=== PATIENT | female | born 1980 | race Caucasian/White ===

== ENCOUNTER 2017-09-13 12:36 | Emergency (ER) | payer BC, SELFPAY ==
[2017-09-13 12:37] VITALS: BP 125/78; PULSE 78; RESP 16; TEMP 37.4; O2SAT 98; BMI 32.4
[2017-09-13] MEDS: 0.9% Normal Saline 1,000 ML 1000 ML IV (13:00)
[2017-09-13] MEDS: Ketorolac 30 MG/ML Syringe IV (13:01)
[2017-09-13] MEDS: Metoclopramide 10 MG/2 ML Vial IV (13:02)
[2017-09-13] MEDS: DiphenhydrAMINE 50 MG/ML Syringe 25 MG IV (13:06)
--- NOTE | 2017-09-13 14:16 | ED.VISSUMM ---
- ER Visit Summary Date of Service: 09/13/17 Chief Complaint: [Headache] History of Present Illness: The patient is a 37 F [presents to the emergency department with a headache that started yesterday. Patient rates her headache as an 8 out of 10. Patient describes her headache as diffuse behind her eyes. Patient states typical of her migraines. Patient describes nausea and vomiting. Patient has had photophobia. Patient states that she normally gets a migraine like this about once every 1-2 months. Patient's last menstrual period was 2 weeks ago. Patient denies any head injury. Patient states that she has been sick with a sore throat yesterday was seen at urgent care and diagnosed with strep pharyngitis and started on amoxicillin. Patient denies any neck pain.] Physical Examination: [HEENT-PERRLA, EOMI. Cranial nerves II through XII grossly intact. TMs clear. Mucous membranes moist. No adenopathy. Patient has diffuse pharyngeal erythema as well as tonsillar exudates bilaterally. No trismus on exam. Patient does have anterior cervical lymphadenopathy. No nuchal rigidity Cardiovascular-regular rate and rhythm without murmur or ectopy Lungs-clear to auscultation, chest wall stable without crepitus or subcu emphysema Abdomen-normoactive bowel sounds, soft, nontender, no rebound or rigidity, no peritoneal signs. Neuro yesv-uedjei-tynh and heel to kaur testing within normal limits, negative Romberg, negative pronator drift, fundi benign Extremities-intact ?4, normal range of motion, normal pulses, atraumatic] Test Results: None indicated] Emergency Department Course and Treatment: [Patient was given a liter normal same fluid bolus as well as Reglan, Benadryl, Toradol, and Decadron Treatment Plan: [Use ibuprofen or Tylenol for worsening] headache. Patient continue with antibiotics. Disposition: [Discharged home in stable condition] Impression: [Migrainous cephalgia Strep pharyngitis] This note was generated with [employer] dictation software. It may contain incorrect words, spelling, and punctuation that were not noted in review of the chart prior to signing ED Disposition - Plan for ED Patient: Chief Complaint: Headache Referrals: Fortino Lerner MD [Primary Care Provider] -
--- NOTE | 2017-09-13 14:19 | ED.DCSUM_ITS ---
- ER Visit Summary Date of Service: 09/13/17 Chief Complaint: [Headache] History of Present Illness: The patient is a 37 F [presents to the emergency department with a headache that started yesterday. Patient rates her headache as an 8 out of 10. Patient describes her headache as diffuse behind her eyes. Patient states typical of her migraines. Patient describes nausea and vomiting. Patient has had photophobia. Patient states that she normally gets a migraine like this about once every 1-2 months. Patient's last menstrual period was 2 weeks ago. Patient denies any head injury. Patient states that she has been sick with a sore throat yesterday was seen at urgent care and diagnosed with strep pharyngitis and started on amoxicillin. Patient denies any neck pain.] Physical Examination: [HEENT-PERRLA, EOMI. Cranial nerves II through XII grossly intact. TMs clear. Mucous membranes moist. No adenopathy. Patient has diffuse pharyngeal erythema as well as tonsillar exudates bilaterally. No trismus on exam. Patient does have anterior cervical lymphadenopathy. No nuchal rigidity Cardiovascular-regular rate and rhythm without murmur or ectopy Lungs-clear to auscultation, chest wall stable without crepitus or subcu emphysema Abdomen-normoactive bowel sounds, soft, nontender, no rebound or rigidity, no peritoneal signs. Neuro drfn-cmlfcw-lvem and heel to kaur testing within normal limits, negative Romberg, negative pronator drift, fundi benign Extremities-intact ?4, normal range of motion, normal pulses, atraumatic] Test Results: None indicated] Emergency Department Course and Treatment: [Patient was given a liter normal same fluid bolus as well as Reglan, Benadryl, Toradol, and Decadron Treatment Plan: [Use ibuprofen or Tylenol for worsening] headache. Patient continue with antibiotics. Disposition: [Discharged home in stable condition] Impression: [Migrainous cephalgia Strep pharyngitis] This note was generated with [employer] dictation software. It may contain incorrect words, spelling, and punctuation that were not noted in review of the chart prior to signing ED Disposition - Plan for ED Patient: Chief Complaint: Headache Referrals: Fortino Lerner MD [Primary Care Provider] -
--- NOTE | 2017-09-13 14:19 | ED.DEP ---
ED Disposition - Plan for ED Patient: Chief Complaint: Headache Instructions: ED Headache Migraine, ED Strep Pharyngitis Conf Referrals: Fortino Lerner MD [Primary Care Provider] - 3-5 Days
[2017-09-13 14:36] VITALS: BP 114/57; PULSE 81; RESP 16; O2SAT 100
--- NOTE | 2017-09-13 14:37 | ED.RN ---
THIS NURSE REVIEWED D/C INSTRUCTIONS WITH PT. PT VERBALIZED UNDERSTANDING OF INSTRUCTIONS. IV D/C. IV CATHETER INTACT. PT TOLERATED WELL. PT DENIES FURTHER NEEDS OR QUESTIONS AT THIS TIME. PT AMBULATES FROM ROOM ON OWN WITHOUT ASSISTANCE FROM STAFF
== END 2017-09-13 14:38 | disposition home or self-care (01) ==
PROVIDERS: Emergency Provider Emergency Medicine; Family Provider Internal Medicine; PCP Internal Medicine
DX: G43.909 Migraine, unspecified, not intractable, without status migrainosus (principal); J02.0 Streptococcal pharyngitis; Z79.2 Long term (current) use of antibiotics
CPT/HCPCS: 96361; 96374; 96375; 99283; J7030; A4216

== ENCOUNTER 2021-01-16 11:53 | Outpatient (RCR) | payer BC, SELFPAY | END 2021-02-12 23:59 | LOC: LABSPEC 11:53 | PROVIDERS: PCP Internal Medicine; Referring Provider Family Medicine; Visit Provider Family Medicine | DX: U07.1 COVID-19 (principal) | CPT/HCPCS: 87635; U0005; U0003 ==

== ENCOUNTER → 2021-02-28 15:51 | Outpatient (CLI) | payer BC, SELFPAY | LOC: LAB 16:04 | PROVIDERS: PCP Internal Medicine; Referring Provider Nurse Practitioner Adult Health; Visit Provider Nurse Practitioner Adult Health | DX: J02.9 Acute pharyngitis, unspecified (principal) | CPT/HCPCS: 87070; 87077 ==

== ENCOUNTER 2022-03-13 08:34 | Emergency (ER) | payer BC, SELFPAY ==
[2022-03-13 08:35] VITALS: BP 178/118; PULSE 85; RESP 18; TEMP 36.6; O2SAT 100; BMI 28.3
--- NOTE | 2022-03-13 09:39 | RAD_ITS ---
STUDY: X-RAY CHEST REASON FOR EXAM: Female, 41 years old. SOB TECHNIQUE: Single AP portable view of the chest. COMPARISON: None. FINDINGS: EKG electrodes are seen. The lungs are clear and expanded. There is no demonstrated pleural abnormality. Normal size heart. Normal mediastinum and graeme. Normal visualized pulmonary arteries. Normal visualized aortic arch and descending thoracic aorta. Normal visualized thoracic spine. Normal visualized ribs, clavicles, and shoulders. There is no demonstrated abnormality of the visualized soft tissue structures of the upper abdomen. RAD/Chest 1 View (Portable) IMPRESSION: Normal x-ray examination of the chest. Electronically Signed: Jose Suero MD at 10:26 EST ,
--- NOTE | 2022-03-13 09:48 | ED.VIS.CHEST ---
HPI History of Present Illness Chief Complaint: Palpitations Informant: patient and parent Narrative Narrative: Patient states that for couple days she has been having a sensation of her heart missing beats. She states it feels like her heart just pauses and falls. When this happens she feels just momentary shortness of breath but it only last for the time of that 1 beat. Yesterday she did have some soreness in her left upper chest. It lasted continually for about 7 or 8 hours. But she has no pain now. She has never had pain with breathing. She is not short of breath except when she gets these intermittent pauses in her heartbeat. She also states that her blood pressure has been going up recently. It used to run 140s over 90s. Her doctor was talking about starting therapy but they were holding off pending some rechecks. She actually has an appointment with her physician later today. Patient has no personal or family history of DVT or PE. She has never been a smoker. No family history of heart disease. No diabetes cholesterol or documented high blood pressure. In between these episodes she feels perfectly normal and she feels normal at this time. She cannot think of anything that makes the symptoms better or worse. She states that currently she is on no medications. Patient does have an added history that she thinks she might have a slight UTI with some frequency and very slight dysuria. She has had these before. [facility] Medical History Anxiety and depression Blood transfusion complicating Hives Hypercholesteremia Hypertension Hypertriglyceridemia Migraine Obesity (BMI 30.0-34.9) Vitamin D deficiency Home Medications bupropion HCl 150 mg 24 hr tablet, extended release (Wellbutrin XL) 150 mg PO QAM #30 tabs 06/08/21 [Rx Last Taken Unknown] bupropion HCl 300 mg 24 hr tablet, extended release 300 mg PO QAM #30 tabs 06/08/21 [Rx Last Taken Unknown] atogepant 60 mg tablet (Qulipta) 60 mg PO DAILY 01/16/22 [History Last Taken Unknown] atogepant 60 mg tablet (Qulipta) 60 mg PO DAILY #1 TAB 01/16/22 [Rx Last Taken Unknown] fluconazole 150 mg tablet (Diflucan) 150 mg PO DAILY #2 tabs 01/16/22 [Rx Last Taken Unknown] phentermine 7.5 mg-topiramate ER 46 mg capsule,ext.release 24hr mphase (Qsymia) 1 cap PO DAILY 01/16/22 [History Last Taken Unknown] ciprofloxacin HCl 250 mg tablet 250 mg PO Q12H #10 tabs 01/17/22 [Rx Last Taken Unknown] Allergy/AdvReac Type Severity Reaction Status Date / Time sulfamethoxazole Allergy Rash Verified 03/13/22 08:37 [From Bactrim] trimethoprim [From Bactrim] Allergy Rash Verified 03/13/22 08:37 venlafaxine HCl Allergy Other Verified 03/13/22 08:37 [From Effexor] Family History Father , age 73 possible aortic aneurism Hypertension Aunt Breast cancer Grandmother CVA (cerebral vascular accident) Surgical History deliv NOS-unsp History of cholecystectomy History of repair of congenital cleft palate Social History current occupational status: employed 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 ; Denies cough Gastrointestinal Gastrointestinal: Denies abdominal pain, nausea or vomiting Genitourinary Genitourinary ED: Reports dysuria and urinary frequency Musculoskeletal Musculoskeletal: Denies arthralgias, back pain, myalgias or neck pain Integumentary Denies rash Neurologic Neurologic: Denies headache(s), paresthesias or weakness Endocrine Endocrinology: Denies polydipsia or polyuria Hematologic/Lymphatic Hematologic/Lymphatic: Denies easy bleeding or easy bruising Allergic/Immunologic Allergic/Immunologic ED: Denies urticaria EXAM Physical Exam Const Vital Signs: 03/13/22 08:35 03/13/22 09:58 Temperature 97.9 F Temperature Source Temporal Pulse Rate 85 70 Respiratory Rate 18 Blood Pressure 178/118 H 154/108 H Blood Pressure Mean 138 123 Pulse Ox 100 Oxygen Delivery Method Room Air Positive well nourished and well developed General Appearance ED: well developed and NAD HEENT Reports moist mucous membranes atraumatic Eyes General Eye ED: Negative for pale conjunctiva or scleral icterus Neck no lymphadenopathy, supple and no JVD Chest Wall inspection of chest normal and palpation of chest normal Resp normal respiratory effort and clear to auscultation bilaterally Resp Narrative: No pain with a deep breath. Auscultation: Negative for rales, rhonchi or wheezes Cardio regular rate and regular rhythm Rate: other Other Details: She is in a normal sinus rhythm at about 75 on the monitor. However, she has not infrequent PVCs. When she has a PVC she reports feeling the same feelings that brought her in. They do correlate with the presence of PVCs. On the monitor these all look to be unifocal. I have not seen no couplets. They are all singles. GI normal to inspection, nondistended, normoactive bowel sounds Back/Spine no CVA tenderness Extremity normal to inspection Extremity Narrative: No cord edema or asymmetry. No tenderness. General Extremety ED: Negative for edema, pulses abnormal or tenderness General Extremity: Negative for edema or pulses abnormal Neuro oriented x3 Psych mental status grossly normal Skin no rashes or lesions noted MDM MDM MDM Narrative Medical decision making narrative: Patient CBC, electrolytes are normal. Urine is also normal. Troponin was negative at only 4. She is having occasional PVCs still. I think this is the cause of her symptoms. I do not think this requires acute treatment. We did verify that the only med she is currently on is Wellbutrin. But she has been on this a long time without problems. We discussed getting better sleep, stress management, avoiding dkjl-lew-qvppoba decongestions antihistamine stimulants coffee tea etc. She is PERC negative. Lab Data Attestation: I reviewed the patient's lab results. Labs: Laboratory Results - last 24 hr 03/13/22 03/13/22 03/13/22 09:55 10:07 10:07 WBC 8.4 RBC 4.30 Hgb 13.0 Hct 39.1 MCV 90.9 MCH 30.2 MCHC 33.2 RDW Std Deviation 41.9 RDW Coeff of Reynaldo 12.7 Plt Count 323 MPV 9.0 Immature Gran % (Auto) 0.400 Neut % (Auto) 58.9 Lymph % (Auto) 32.8 [place] % (Auto) 5.5 Eos % (Auto) 1.6 Baso % (Auto) 0.8 Absolute Neuts (auto) 4.9 Absolute Lymphs (auto) 2.74 Nucleated RBC % 0 Sodium 141 Potassium 3.8 Chloride 109 H Carbon Dioxide 30.0 Anion Gap 2 L BUN 6 L Creatinine 0.62 Estim Creat Clear Calc 105.20 Est GFR (MDRD) Af Amer 138 Est GFR (MDRD) Non-Af 114 BUN/Creatinine Ratio 9.7 L Glucose 87 Calcium 8.5 Troponin I High Sens 4 Urine Color Yellow Urine Clarity Sl. Cloudy Urine pH 6.5 Ur Specific [place] 1.015 Urine Protein Negative Urine Glucose (UA) Normal Urine Ketones Negative Urine Occult Blood Negative Urine Nitrite Negative Urine Bilirubin Negative Urine Urobilinogen Normal Ur Leukocyte Esterase Negative Urine RBC 0 SEEN Urine WBC 0 SEEN Ur Squamous Epith Cells 0-5 SEEN Urine Bacteria 0 SEEN Urine Mucus 0 SEEN Radiography Diagnostic Testing: Clinical Impression(s) from Imaging Studies Chest X-Ray 03/13/22 09:39 IMPRESSION: Normal x-ray examination of the chest. Electronically Signed: Jose Suero MD at 10:26 EST Reading Location ID and State: [address] [place] [address] , Service support , Single view chest x-ray looked at by me and read by radiology shows no acute process EKG Initial EKG: Comments: EKG done for palpitations and history of prior chest pain read by me shows a normal sinus rhythm with occasional PVCs. Overall rate of 76. No other ectopy. No acute ST elevation or depression. IL interval, QRS duration and QTc are normal. Discharge Plan Triage Chief Complaint: Palpitations ED Provider: Terence Bunch Dx/Rx/DC Orders Clinical Impression: Frequent unifocal PVCs Instructions: ED Palpitations Prescriptions: No Action bupropion HCl 300 mg tablet extended release 24 hr 300 mg PO QAM Qty: 30 3RF bupropion HCl [Wellbutrin XL] 150 mg tablet extended release 24 hr 150 mg PO QAM Qty: 30 3RF Qulipta 60 mg tablet 60 mg PO DAILY Qty: 1 0RF fluconazole [Diflucan] 150 mg tablet 150 mg PO DAILY Qty: 2 0RF Qsymia 7.5-46 mg capsule, ER multiphase 24 hr 1 cap PO DAILY Qulipta 60 mg tablet 60 mg PO DAILY ciprofloxacin HCl 250 mg tablet 250 mg PO Q12H Qty: 10 0RF Primary Care Provider: Fortino Lerner Referrals: Fortino Lerner MD [Primary Care Provider] - 3-5 Days if not improving Disposition Disposition: Home, Self Care
[2022-03-13] MEDS: 0.9% Normal Saline 1,000 ML 999 ML IV (09:54)
[2022-03-13 09:58] VITALS: BP 154/108; PULSE 70
[2022-03-13 10:01] LABS: Bacteria 0 SEEN /hpf (None Seen); Mucous, Urine 0 SEEN /hpf (<or=2+); Red Blood Cells-Urine 0 SEEN /hpf (0-5); White Blood Cells 0 SEEN /hpf (0-5)
[2022-03-13 10:12] LABS: Color, Urine Yellow (Yellow); Glucose, Dipstick Normal (Normal); Ketone-Dipstick Negative (Negative); Leukocyte Esterase-Dipstick Negative /ul (Negative); Nitrite-Dipstick Negative (Negative); Occult Blood-Urine Negative /ul (Negative); Protein-Dipstick Negative (Negative); Specific Gravity, Urine 1.015 (1.002-1.030); Urine Bilirubin Dipstick Negative (Negative); Urine Clarity Sl. Cloudy (Clear); Urine Urobilinogen Normal (Normal); Urine pH 6.5 (5.0 - 8.0)
[2022-03-13 10:13] LABS: Absolute Lymphocyte Count 2.74 X10^3/uL (0.83-4.51); Absolute Neutrophil Count 4.9 X10^3/uL (2.0-7.7); Basophil# 0.07 X10^3/uL; Basophil% 0.8 % (0-1); Eosinophil# 0.13 X10^3/uL; Eosinophils% 1.6 % (0-5); Hematocrit 39.1 % (37-47); Lymphocyte # 2.74 X10^3/ul (0.83-4.51); Lymphocyte % 32.8 % (19-41); Mean Corp Hgb Conc 33.2 g/dL (32-36); Mean Corpuscular Hgb 30.2 pg (27.0-32.0); Mean Corpuscular Volume 90.9 fL (81-99); Monocyte# 0.46 X10^3/uL; Monocyte% 5.5 % (0-10); NRBC Flagged by Analyzer 0 % (0-5); Neutrophil # 4.92 X10^3/uL (2.7-7.7); Neutrophil % 58.9 % (47-70); Platelet Count 323 K/mm3 (150-450); RBC Distribution Width CV 12.7 % (11.6-14.6); RBC Distribution Width SD 41.9 fl (35.1-43.9); White Blood Count 8.4 K/mm3 (4.4-11.0)
[2022-03-13 10:17] LABS: Squamous Epithelial Cells - UA 0-5 SEEN /hpf (5-10)
[2022-03-13 10:28] LABS: Anion Gap 2 (5-15); BUN 6 mg/dL (7-18); BUN/Creat Ratio 9.7 RATIO (10-20); Calcium,Total 8.5 mg/dL (8.5-10.1); Chloride 109 mmol/L (98-107); Creatinine, Serum 0.62 mg/dL (0.55-1.02); EST Glomerular Filtration Rate 114 mL/min (>60); Est Glom Filt Rate - Afr Amer 138 mL/min (>60); Glucose 87 mg/dL (74-106); Potassium 3.8 mmol/L (3.5-5.1); Sodium Level 141 mmol/L (136-145); Troponin-I HS 4 pg/mL (3.0-54.0)
[2022-03-13 11:12] VITALS: BP 144/110; PULSE 72
== END 2022-03-13 11:12 | disposition home or self-care (01) ==
PROVIDERS: Emergency Provider Emergency Medicine; PCP Internal Medicine; Visit Provider Emergency Medicine
DX: I49.3 Ventricular premature depolarization (principal)
CPT/HCPCS: 71045; 80048; 81001; 84484; 85025; 93005; 96360; 99284; J7030; A4216

== ENCOUNTER → 2022-10-08 | Outpatient (CLI) | payer BC, SELFPAY ==
[2022-10-08 07:11] LABS: Absolute Neutrophil Count 5.2 X10^3/uL (2.0-7.7); Basophil# 0.09 X10^3/uL; Eosinophil# 0.22 X10^3/uL; Eosinophils% 2.4 % (0-5); Hematocrit 40.2 % (37-47); Hemoglobin 13.9 g/dL (12.0-15.0); Lymphocyte % 30.9 % (19-41); Mean Corp Hgb Conc 34.6 g/dL (32-36); Mean Corpuscular Hgb 31.2 pg (27.0-32.0); Mean Corpuscular Volume 90.3 fL (81-99); Mean Platelet Vol. 9.1 fl (6.2-12.0); Monocyte# 0.69 X10^3/uL; Monocyte% 7.6 % (0-10); NRBC Flagged by Analyzer 0 % (0-5); Neutrophil # 5.22 X10^3/uL (2.7-7.7); Neutrophil % 57.5 % (47-70); Platelet Count 332 K/mm3 (150-450); RBC Distribution Width CV 12.7 % (11.6-14.6); RBC Distribution Width SD 41.8 fl (35.1-43.9); Red Blood Count 4.45 M/mm3 (4.2-5.4); White Blood Count 9.1 K/mm3 (4.4-11.0)
[2022-10-08 07:20] LABS: Erythrocyte Sedimentation Rate 2 mm/hr (0-30)
[2022-10-08 07:41] LABS: Vitamin D,25 Hydroxy 29.6 ng/mL
[2022-10-08 07:47] LABS: AST(SGOT) 13 U/L (15-37); Alanine Aminotransfer ALT/SGPT 19 U/L (13-56); Albumin, Serum 3.4 g/dL (3.2-5.0); Alkaline Phosphatase 92 U/L (45-117); BUN 12 mg/dL (7-18); Bilirubin, Direct 0.06 mg/dL (0.00-0.30); Creatinine, Serum 0.89 mg/dL (0.55-1.02); EST Glomerular Filtration Rate 75 mL/min (>60); Est Glom Filt Rate - Afr Amer 91 mL/min (>60); Globulin 3.6 g/dL (2.2-4.2); Glucose 104 mg/dL (74-106); Rheumatoid Factor < 10.0 IU/mL (<15); Thyroid Stim Hormone (TSH) 2.89 uIU/mL (0.358-3.74); Uric Acid 4.6 mg/dL (2.6-6.0)
[2022-10-09 12:09] LABS: Anti-Nuclear Antibody Test Negative (.)
[2022-10-11 01:06] LABS: Thyroid Peroxidase AB < 9 IU/mL (0-34)
== END | disposition home or self-care (01) ==
LOC: LAB 06:48
PROVIDERS: PCP Internal Medicine; Referring Provider Specialist; Visit Provider Specialist
DX: L50.1 Idiopathic urticaria (principal); E55.9 Vitamin D deficiency, unspecified; E07.9 Disorder of thyroid, unspecified
CPT/HCPCS: 36415; 80076; 82306; 82565; 82947; 83520; 84443; 84520; 84550; 85025; 85652; 86038; 86376; 86431

== ENCOUNTER 2023-10-14 14:31 | Emergency (ER) | payer BC, SELFPAY ==
[2023-10-14 14:32] VITALS: BP 160/109; PULSE 86; RESP 16; TEMP 36.6; O2SAT 98; BMI 29.0
--- NOTE | 2023-10-14 15:30 | ED.VIS.GI ---
HPI HPI - GI History of Present Illness Chief Complaint: GI Bleed Narrative Narrative: 43-year-old female presenting with bloody stools. She states has had at least 6 bowel movements with blood in the stool. She states it is bright red. Denies hemorrhoids. She has 1 sick contact at work who was vomiting. Nobody else in her household is sick. Patient states that yesterday she woke up not feeling well about 10 AM. She felt well before going to bed. Patient states when she woke up she had nausea and vomiting and then had the stones all day yesterday. She is not feeling lightheaded but she states she feels generally fatigued. Denies cough, shortness of breath, fever, chills. Denies urinary or vaginal complaints. She is not on any blood thinners. Patient states she has no history of diverticulitis, colitis. No exotic travel or change in diet. No recent antibiotics. [facility] Medical History Obesity (BMI 30.0-34.9) Anxiety and depression Vitamin D deficiency Hypercholesteremia Hypertriglyceridemia Hives Blood transfusion complicating Migraine Hypertension Home Medications ?Medication ?Instructions ?Recorded ?Last Taken ?Type bupropion HCl 150 mg 24 hr tablet, 150 mg PO QAM #30 tabs 06/08/21 Unknown Rx extended release (Wellbutrin XL) bupropion HCl 300 mg 24 hr tablet, 300 mg PO QAM #30 tabs 06/08/21 Unknown Rx extended release atogepant 60 mg tablet (Qulipta) 60 mg PO DAILY 01/16/22 Unknown History atogepant 60 mg tablet (Qulipta) 60 mg PO DAILY #1 TAB 01/16/22 Unknown Rx fluconazole 150 mg tablet 150 mg PO DAILY #2 tabs 01/16/22 Unknown Rx (Diflucan) phentermine 7.5 mg-topiramate ER 1 cap PO DAILY 01/16/22 Unknown History 46 mg capsule,ext.release 24hr mphase (Qsymia) ciprofloxacin HCl 250 mg tablet 250 mg PO Q12H #10 tabs 01/17/22 Unknown Rx hydroxyzine HCl 25 mg tablet 25 mg PO DIRECTED anxiety #30 05/22/22 Unknown Rx tabs Allergy/AdvReac Type Severity Reaction Status Date / Time sulfamethoxazole (From Allergy Rash Verified 10/14/23 14:33 Bactrim) trimethoprim (From Bactrim) Allergy Rash Verified 10/14/23 14:33 venlafaxine HCl (From Allergy Other Verified 10/14/23 14:33 Effexor) Family History Father , age 73 possible aortic aneurism Hypertension Aunt Breast cancer Grandmother CVA (cerebral vascular accident) Surgical History deliv NOS-unsp History of cholecystectomy History of repair of congenital cleft palate Social History current occupational status: employed 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 Smoking Status: Never smoker alcohol intake: never substance use type: does not use diet: other frequency: 1-2 times per week ROS ROS ED Constitutional Constitutional ED: Denies chills, fever(s) or sweats Eyes Eyes: Denies blurry vision or change in vision ENT ENT ED: Denies ear pain or sore throat Cardiovascular Cardiovascular: Denies chest pain, palpitations or racing heartbeat Respiratory/Chest Respiratory/Chest: Denies cough, dyspnea or sputum Gastrointestinal Gastrointestinal: Reports abdominal pain, diarrhea, nausea, vomiting and other Details: Bloody stools ; Denies constipation Genitourinary Genitourinary ED: Denies dysuria, hematuria or urinary frequency Musculoskeletal Musculoskeletal: Denies arthralgias, myalgias or neck pain Integumentary Denies abscess, Abrasions or rash Neurologic Neurologic: Denies headache(s), paresthesias or weakness Psychiatric Psychiatric: Denies anxiety, depression, suicidal ideation or suicidal thoughts Endocrine Endocrinology: Denies polydipsia or polyuria EXAM Physical Exam Const Vital Signs: 10/14/23 14:32 10/14/23 16:32 10/14/23 17:36 Temperature 97.8 F 98.5 F Temperature Source Temporal Oral Pulse Rate 86 75 75 Respiratory Rate 16 18 18 Blood Pressure 160/109 H 119/75 Blood Pressure Mean 126 89 Pulse Ox 98 98 98 Oxygen Delivery Method Room Air Room Air Room Air 10/14/23 18:57 Temperature 98.2 F Temperature Source Pulse Rate 72 Respiratory Rate 18 Blood Pressure 119/75 Blood Pressure Mean 89 Pulse Ox 98 Oxygen Delivery Method Positive well nourished General Appearance ED: Negative for pallor HEENT Reports TM's clear and moist mucous membranes normocephalic Tympanic Membrane ED: Yes TM's clear Eyes PERRL and EOMs intact bilaterally Resp normal respiratory effort and clear to auscultation bilaterally Cardio regular rate and regular rhythm GI Palpation: tender LLQ and periumbilical Extremity full ROM Neuro CN's II-XII intact bilaterally, moves all extremities and no sensory deficits noted Sensorium / Orientation: alert, oriented to person, oriented to place and oriented to time Motor Exam: strength 5/5 throughout Psych mental status grossly normal Skin General Skin Exam: Negative for jaundice or pallor MDM MDM MDM Narrative Medical decision making narrative: Patient presenting with left-sided abdominal pain. Patient presenting with right flank pain. Differential includes colitis, diverticulitis, gastritis, pancreatitis,UTI, pyelonephritis, bowel obstruction, malignancy, dehydration, electrolyte abnormalities, . Insert upper GI labs. Patient declined analgesia but does request Zofran. This is given. CBC shows a leukocytosis of 13.8. Hemoglobin 15, platelets 381. Renal function electrolytes within normal limits. LFTs are normal with exception of alkaline phosphatase 118. hCG negative. Urinalysis negative. CT of the abdomen pelvis was obtained and shows concern for moderately colitis. Discussed with Dr. Hawthorne who recommended a stool study and she can follow-up with them as an outpatient. He did not believe she needed antibiotics. Discussed with the patient at length. Return precautions were discussed. She was unable to give a stool sample. Impression: 1. Colitis 2. Lower GI bleed stable Lab Data Attestation: I reviewed the patient's lab results. Labs: Laboratory Results - last 24 hr 10/14/23 10/14/23 15:50 16:17 WBC 13.8 H RBC 5.02 Hgb 15.0 Hct 44.7 MCV 89.0 MCH 29.9 MCHC 33.6 RDW Std Deviation 41.3 RDW Coeff of Reynaldo 12.8 Plt Count 381 MPV 9.1 Immature Gran % (Auto) 0.400 Neut % (Auto) 70.3 H Lymph % (Auto) 21.7 [place] % (Auto) 5.9 Eos % (Auto) 1.2 Baso % (Auto) 0.5 Absolute Neuts (auto) 9.7 H Absolute Lymphs (auto) 2.98 Nucleated RBC % 0 Sodium 137 Potassium 3.4 L Chloride 105 Carbon Dioxide 26.0 Anion Gap 6 BUN 6 L Creatinine 0.86 Estim Creat Clear Calc 86.27 Est GFR (MDRD) Af Amer 94 Est GFR (MDRD) Non-Af 78 BUN/Creatinine Ratio 7.0 L Glucose 89 Calcium 9.4 Total Bilirubin 0.70 AST 18 ALT 36 Alkaline Phosphatase 118 H Total Protein 8.2 Albumin 4.0 Globulin 4.2 Albumin/Globulin Ratio 1.0 Lipase 96 H Serum , Qual NEGATIVE Urine Color Yellow Urine Clarity Sl. Cloudy Urine pH 6.0 Ur Specific [place] 1.015 Urine Protein 15 H Urine Glucose (UA) Normal Urine Ketones Negative Urine Occult Blood Negative Urine Nitrite Negative Urine Bilirubin Negative Urine Urobilinogen Normal Ur Leukocyte Esterase Negative Urine RBC 0 SEEN Urine WBC 0-5 SEEN Ur Squamous Epith Cells 0-5 SEEN Urine Bacteria 0 SEEN Urine Mucus 0 SEEN Blood Type O NEGATIVE Antibody Screen NEGATIVE Radiography Diagnostic Testing: Clinical Impression(s) from Imaging Studies Abdomen/Pelvis CT 10/14/23 16:51 IMPRESSION: 1. Moderate length segment of wall edema and adjacent soft tissue stranding involving the distal descending colon and the transverse colon. No diverticula noted in diverticulitis is felt unlikely. However findings consistent with moderate length colitis. No evidence of bowel obstruction or free air. 2. Nonspecific fluid in the pelvis/cul-de-sac. 3. Normal appendix. 4. No evidence of obstructive uropathy. 5. Hepatic steatosis without hepatic masses. 6. Postoperative changes of prior cholecystectomy. No ductal dilatation. Electronically Signed: Gil Ruano MD at 17:31 EDT , Discharge Plan Triage Chief Complaint: GI Bleed ED Provider: Alphonso Melo Dx/Rx/DC Orders Instructions: ED Understanding Colitis, ED Lower GI Bleeding (Stable) Prescriptions: No Action bupropion HCl 300 mg tablet extended release 24 hr 300 mg PO QAM Qty: 30 3RF bupropion HCl [Wellbutrin XL] 150 mg tablet extended release 24 hr 150 mg PO QAM Qty: 30 3RF Qulipta 60 mg tablet 60 mg PO DAILY Qty: 1 0RF fluconazole [Diflucan] 150 mg tablet 150 mg PO DAILY Qty: 2 0RF Qsymia 7.5-46 mg capsule, ER multiphase 24 hr 1 cap PO DAILY Qulipta 60 mg tablet 60 mg PO DAILY ciprofloxacin HCl 250 mg tablet 250 mg PO Q12H Qty: 10 0RF hydroxyzine HCl 25 mg tablet 25 mg PO DIRECTED Qty: 30 2RF Rx Instructions: 1/2 to 1 tab as needed every 6 hours for anxiety. Primary Care Provider: Fortino Lerner Referrals: Christopher Hdz DO [Med Staff - Active Staff] - 3-5 Days Fortino Lerner MD [Primary Care Provider] - Print Language: Venezuelan Disposition Disposition: Home, Self Care Discharge Date/Time: 10/14/23 18:58
[2023-10-14] MEDS: Ondansetron 4 MG/2 ML Vial IV (15:57)
[2023-10-14] MEDS: 0.9% Normal Saline (1000mL) 1,000 ML 999 ML IV (15:57)
[2023-10-14 16:11] LABS: Absolute Lymphocyte Count 2.98 X10^3/uL (0.83-4.51); Absolute Neutrophil Count 9.7 X10^3/uL (2.0-7.7); Basophil# 0.07 X10^3/uL; Basophil% 0.5 % (0-1); Eosinophil# 0.16 X10^3/uL; Eosinophils% 1.2 % (0-5); Hematocrit 44.7 % (37-47); Lymphocyte # 2.98 X10^3/ul (0.83-4.51); Lymphocyte % 21.7 % (19-41); Mean Corp Hgb Conc 33.6 g/dL (32-36); Mean Corpuscular Hgb 29.9 pg (27.0-32.0); Mean Platelet Vol. 9.1 fl (6.2-12.0); Monocyte# 0.81 X10^3/uL; Monocyte% 5.9 % (0-10); NRBC Flagged by Analyzer 0 % (0-5); Neutrophil # 9.67 X10^3/uL (2.7-7.7); Neutrophil % 70.3 % (47-70); Platelet Count 381 K/mm3 (150-450); RBC Distribution Width CV 12.8 % (11.6-14.6); RBC Distribution Width SD 41.3 fl (35.1-43.9); Red Blood Count 5.02 M/mm3 (4.2-5.4); White Blood Count 13.8 K/mm3 (4.4-11.0)
[2023-10-14 16:22] LABS: Bacteria 0 SEEN /hpf (None Seen); Mucous, Urine 0 SEEN /hpf (<or=2+); Red Blood Cells-Urine 0 SEEN /hpf (0-5)
[2023-10-14 16:24] LABS: Color, Urine Yellow (Yellow); Glucose, Dipstick Normal (Normal); Ketone-Dipstick Negative (Negative); Leukocyte Esterase-Dipstick Negative /ul (Negative); Nitrite-Dipstick Negative (Negative); Occult Blood-Urine Negative /ul (Negative); Protein-Dipstick 15 mg/dl (Negative); Specific Gravity, Urine 1.015 (1.002-1.030); Urine Bilirubin Dipstick Negative (Negative); Urine Clarity Sl. Cloudy (Clear); Urine Urobilinogen Normal (Normal)
[2023-10-14 16:27] LABS: Internal QC Validated? YES +Cl - CLEAR BKGD; Pregnancy, Serum, hCG Quali. NEGATIVE Negative
[2023-10-14 16:32] VITALS: PULSE 75; RESP 18; O2SAT 98
[2023-10-14 16:37] LABS: AST(SGOT) 18 U/L (15-37); Alanine Aminotransfer ALT/SGPT 36 U/L (13-56); Alkaline Phosphatase 118 U/L (45-117); Anion Gap 6 (5-15); BUN 6 mg/dL (7-18); Calcium,Total 9.4 mg/dL (8.5-10.1); Chloride 105 mmol/L (98-107); Creatinine, Serum 0.86 mg/dL (0.55-1.02); EST Glomerular Filtration Rate 78 mL/min (>60); Est Glom Filt Rate - Afr Amer 94 mL/min (>60); Estimated Creatinine Clearance 86.27 ml/min; Globulin 4.2 g/dL (2.2-4.2); Glucose 89 mg/dL (74-106); Lipase 96 U/L (13-75); Potassium 3.4 mmol/L (3.5-5.1); Protein, Total 8.2 g/dL (6.4-8.2); Sodium Level 137 mmol/L (136-145)
[2023-10-14 16:45] LABS: Squamous Epithelial Cells - UA 0-5 SEEN /hpf (5-10); White Blood Cells 0-5 SEEN /hpf (0-5)
--- NOTE | 2023-10-14 16:51 | CT_ITS ---
INDICATION: llq abdominal pain EXAMINATION: CT ABDOMEN AND PELVIS with CONTRAST - CT Abdomen And Pelvis W/ Contrast Injection TECHNIQUE: Multiple axial images were obtained of the abdomen and pelvis following administration of IV contrast. Planar reconstructions obtained. A radiation dose optimization technique was used for this scan. RADIATION DOSAGE (If Supplied By Facility): CTDIvol = ( 13.33 ) mGy, DLP = ( 700.83 ) mGycm IV Contrast dosage and agent: 100 mL Isovue-370 Oral contrast: None. COMPARISON: No pertinent previous studies for comparison.. FINDINGS: LOWER THORAX: Lungs are clear. Cardiac contour is normal, no pericardial effusion. No coronary vascular calcifications noted. HEPATOBILIARY: Liver: The liver is homogeneous and shows no evidence of focal lesion. There is diffuse hepatic steatosis. Gallbladder: Appears to be surgically absent. No ductal dilatation. Pancreas: Pancreas is normal size configuration and density. No mass is noted. Spleen: The spleen is homogeneous and normal in size. . BOWEL: Stomach: The stomach is normal in size configuration, no evidence of focal masses, abnormal calcifications. No hiatal hernia noted. Bowel: Small and large have normal configuration, no masses or bowel obstruction noted. There is diffuse wall thickening and adjacent soft tissue stranding involving the transition from the descending colon to the sigmoid colon. No gay diverticula noted in the region, and diffuse colitis is a consideration. Infiltrating masses felt less likely given the length of bowel involvement. No small bowel obstruction. No evidence of free air or bowel obstruction. Appendix: The visualized appendix has normal appearance.: GENITOURINARY: Adrenals: Both adrenal glands are normal in size. Kidneys: Kidneys appear symmetric in size. No calcifications are seen in the collecting system. There is no hydronephrosis or surrounding fluid. Bladder: Normal Pelvic organs: Normal appearance uterus and pelvic sidewalls. There is [id number] amount of fluid in the cul-de-sac. RETROPERITONEUM: There is normal appearance of the abdominal aorta and inferior vena cava. LYMPH NODES: No evidence of retroperitoneal or para-aortic masses fluid collections or adenopathy. PERITONEAL CAVITY: Free fluid is present in the pelvis. No other evidence of ascites. No free air. ANTERIOR ABDOMINAL WALL: Normal, no hernia identified. BONES AND SOFT TISSUES: The skeleton shows no evidence for fractures or destructive lesions. OTHER: None CT/Abdomen/Pelvis W IV Cont ONLY IMPRESSION: 1. Moderate length segment of wall edema and adjacent soft tissue stranding involving the distal descending colon and the transverse colon. No diverticula noted in diverticulitis is felt unlikely. However findings consistent with moderate length colitis. No evidence of bowel obstruction or free air. 2. Nonspecific fluid in the pelvis/cul-de-sac. 3. Normal appendix. 4. No evidence of obstructive uropathy. 5. Hepatic steatosis without hepatic masses. 6. Postoperative changes of prior cholecystectomy. No ductal dilatation. Electronically Signed: Gil Ruano MD at 17:31 EDT ,
[2023-10-14 17:36] VITALS: BP 119/75; PULSE 75; RESP 18; TEMP 36.9; O2SAT 98
[2023-10-14 18:57] VITALS: BP 119/75; PULSE 72; RESP 18; TEMP 36.8; O2SAT 98
== END 2023-10-14 18:58 | disposition home or self-care (01) ==
PROVIDERS: Emergency Provider Student in an Organized Health Care Education/Training Program; PCP Internal Medicine; Visit Provider Student in an Organized Health Care Education/Training Program
DX: K52.9 Noninfective gastroenteritis and colitis, unspecified (principal); I10 Essential (primary) hypertension; E78.00 Pure hypercholesterolemia, unspecified; Z90.49 Acquired absence of other specified parts of digestive tract; F41.9 Anxiety disorder, unspecified; F32.A Depression, unspecified
CPT/HCPCS: 74177; 80053; 81001; 83690; 84703; 85025; 86850; 86900; 86901; 96361; 96374; 99284; J7030; Q9967; A4216; J2405

== ENCOUNTER 2024-03-05 09:39 | Day surgery (SDC) | payer BC, SELFPAY ==
--- NOTE | 2024-02-18 18:00 | HP.PCM_ITS ---
History and Physical Date of Admission: 03/05/24 HPI: The patient is a 43 year old female presenting for pre-operative visit. She is scheduled for Hysteroscopy D&C, polyp resection and levonorgestrel IUD insertion for adenomyosis, dysmenorrhea, endometrial polyp and pelvic pain on 03/05/24. Procedure discussed along with risks, benefits and complications. Other alternatives discussed for management. Consent form signed? Yes. PAST MEDICAL HISTORY PAST MEDICAL HISTORY Diagnosis Date ? Abnormal glandular Papanicolaou smear of cervix 2010 Abn. Pap smear (cervix) ? Allergic rhinitis due to other allergen ? Depression affecting in second trimester, antepartum 11/14/2015 On prozac ? Depressive disorder 01/29/2018 ? Dysthymic disorder Depression (non-psychotic) ? Elevated blood pressure reading 01/29/2018 ? Migraine, unspecified, with intractable migraine, so stated, without mention of status migrainosus 10/21/2014 ? Pap smear abnormality of cervix with LGSIL 09/15/2013 ? Rh negative status during 09/26/2011 PAST SURGICAL HISTORY PAST SURGICAL HISTORY Procedure Laterality Date ? DELIVERY ONLY 11/20/2009 11/20/2009,2012 ? DELIVERY ONLY N/A 04/16/2016 ? LAPS SURG CHOLECYSTECTOMY W/CHOLANGIOGRAPHY 11/10/2008 Normal IOC ? LIG/TRNSXJ FLP TUBE ABDL/VAG APPR UNI/BI Bilateral 04/16/2016 ? PAST SURGICAL HISTORY OF 1982 Repair cleft palate. [id number] CURRENT MEDICATIONS Current Outpatient Medications Medication Sig Dispense Refill ? rizatriptan (MAXALT) 10 mg tablet Take one tablet by mouth at the onset of the headache. If no improvement in 2 hours take one more tablet. No more than 2 tablets in 24 hours 6 tablet 2 ? dicyclomine (BENTYL) 10 mg capsule Take 1 capsule by mouth three times a day as needed. 90 capsule 3 ? buPROPion XL (WELLBUTRIN XL) 300 mg 24 hr tablet Take 1 tablet by mouth once daily. Take with 150 mg to =450 mg 90 tablet 3 ? buPROPion XL (WELLBUTRIN XL) 150 mg 24 hr tablet Take 1 tablet by mouth once daily. Take with 300 mg tablet ej=705 mg. 90 tablet 3 ? levocetirizine dihydrochloride (XYZAL ORAL) Take by mouth. ? hydrOXYzine HCl (ATARAX) 25 mg tablet Take 25 mg by mouth once daily. ? ondansetron orally disintegrating (ZOFRAN ODT) 4 mg disintegrating tablet Take 1 tablet by mouth every 6 hours as needed for nausea/vomiting. 10 tablet 1 No current facility-administered medications for this visit. ALLERGIES: Bactrim [Sulfamethoxazole-Trimethoprim] and Effexor [Venlafaxine] PERSONAL HISTORY: SOCIAL HISTORY Social History Tobacco Use ? Smoking status: Never ? Smokeless tobacco: Never Vaping Use ? Vaping status: Never Used Substance Use Topics ? Alcohol use: No ? Drug use: No FAMILY HISTORY: FAMILY HISTORY FAMILY HISTORY Problem Relation Age of Onset ? Hypertension Father ? other (abdomina aortic aneurysm rupture) Father 75 ? No Known Problems Brother ? Stroke Maternal Grandmother ? other (fall) Maternal Grandfather ? Breast Cancer Paternal Grandmother ? other (Other) Paternal Grandfather ? Breast Cancer Paternal Aunt REVIEW OF SYMPTOMS: GENERAL: denies fevers or chills ENDOCRINOLOGY: has not been on steroids Cardiology : denies palpitations or chest pain Respiratory: denies SOB or cough Hematology: denies history of prolonged bleeding or easy bruising or VTE Allergy: Denies history of personal or family history of allergy to anesthesia PHYSICAL EXAMINATION: VITALS: Blood pressure 124/86, height 162.6 cm (5' 4), weight 76.2 kg (168 lb), last menstrual period 02/05/2024. GENERAL: The patient is well nourished, well hydrated in no acute distress. , The patient is oriented to time, place, and person. NECK: Supple. No lynphadenopathy, normal thyroid, no thyromegaly. LUNGS: Clear to auscultation bilaterally. no wheezes, rhonchi or rales HEART: Regular rate and rhythm, Normal heart sounds, and No murmurs or gallops Pelvic US on 01/02/24: Indication Abnormal uterine bleeding, intermenstrual bleeding Impression The uterus is anteverted and measures 94 mm x 52 mm x 57 mm. The myometrium is echogenic, heterogeneous but no obvious fibroids are observed. This finding is suggestive of adenomyosis. The endometrial thickness is 9.2 mm. There is fluid in the uterine niche and endometrial cavity. There is an anterior polyp at the uterine niche that measures 9 mm x 8 mm x 5 mm. The right ovary measures 19 mm x 23 mm x 29 mm. The left ovary measures 28 mm x 22 mm x 26 mm. There is trace free fluid visualized. Technique: Three dimensional imaging was created on a dedicated stand-alone 3D workstation with images created and archived, and supervised and reviewed by the interpreting physician utilizing images from a US Scan performed on 01/02/24. IMPRESSION: endometrial polyp, adenomyosis, dysmenorrhea, pelvic pain PLAN: The risks/benefits/alternatives and personal involved for the planned Hysteroscopy D&C with polyp resection and IUD insertion were reviewed with the patient. Her questions were answered to her satisfaction and she desires to proceed. Consent was signed. I reviewed with her postop instructions and ex pectations. I have reviewed and updated past medical and surgical history, medications and allergies Assessment & Plan Assessment/Plan (1) Dysmenorrhea: (2) Endometrial polyp: (3) Adenomyosis: (4) Pelvic pain:
[2024-03-05] VITALS (8 sets, daily range): BP systolic 130–150; BP diastolic 93–103; PULSE 80–88; RESP 16; TEMP 36.8–36.9; O2SAT 98–99; BMI 29.5
[2024-03-05] MEDS: Acetaminophen 500 MG Tablet 1000 MG PO (10:15)
[2024-03-05 10:19] LABS: Internal QC Validated? YES +Cl - CLEAR BKGD; Pregnancy, Urine Negative Negative
[2024-03-05] MEDS: Ketorolac 30 MG/ML Syringe IV (10:24)
--- NOTE | 2024-03-05 10:58 | PCM.PRE.AN2 ---
ASA Classification* ASA Classification ASA Classification: 2 Assessment & Plan Anesthesia* Anesthesia Assessment Anesthesia Assessment: Discussed sedation and/or anesthesia options, risks, benefits, and alternatives with patient/parents/legal guardian/POA. Questions invited. The patient/parents/legal guardian/POA seems to understand and agrees to proceed with anesthesia plan. Reviewed the physical assessment, medical history, allergy history and patient home medications list prior to surgery/procedure/anesthetic and documented any changes. Performed airway and anesthesia risk assessments. Anesthesia Type Anesthesia Type: MAC History Source History Obtained from:: Patient and Chart Anesthesia Focused Assessment* Temperature: 98.2 F Pulse Rate: 85 Blood Pressure: 137/103 Respiratory Rate: 16 Pulse Ox: 98 Oxygen Delivery Method: Room Air Airway Assessment Mouth opens: 2 cm Mallampati Score: IV Teeth Condition: Intact Neck Range of motion (ROM): Full ROM Focused Labs Anesthesia Preop lab: CBC WBC 13.8 K/mm3 (4.4-11.0) H 10/14/23 15:50 RBC 5.02 M/mm3 (4.2-5.4) 10/14/23 15:50 Hgb 15.0 g/dL (12.0-15.0) 10/14/23 15:50 Hct 44.7 % (37-47) 10/14/23 15:50 Plt Count 381 K/mm3 (150-450) 10/14/23 15:50 CHEMISTRY Potassium 3.4 mmol/L (3.5-5.1) L 10/14/23 15:50 Sodium 137 mmol/L (136-145) 10/14/23 15:50 BUN 6 mg/dL (7-18) L 10/14/23 15:50 Creatinine 0.86 mg/dL (0.55-1.02) 10/14/23 15:50 Glucose 89 mg/dL (74-106) 10/14/23 15:50 TSH 2.89 uIU/mL (0.358-3.74) 10/08/22 06:50 COAG HCG, Quant [id number] mIU/mL (<9 non-preg) H 09/18/15 15:40 Urine Test Negative Negative 03/05/24 10:01 Pre-Assessment Diagnosis/Proposed Procedure Planned Operative Procedure(s): EXAM UNDER ANESTHESIA,HYSTEROSCOPY D&C POLYP RESECTION CLEMENTE IUD INSERTION Anesthesia History Anesthesia History - sales development consultant: Anesthesia History - sales development consultant Hx Hospitalization No 02/25/24 10:18 Any Problems With Anesthesia No 02/25/24 10:18 Cholinesterase deficiency No 02/25/24 10:18 You/Your Family Experience No 02/25/24 10:18 fever (hyperthermia) with Relationship Recent Exposure to Contagious No 03/05/24 10:08 Disease Does patient have nerve No 02/25/24 10:18 stimulator Patient instructed to have device shut off --Does patient have Pacemaker No 03/05/24 10:08 or ICD? When Was Last Pacemaker Check QUESTION #4 FULL TEXT: You/Your Family Experience fever (hyperthermia) with Anesthesia Last Oral Intake Last Oral intake: Last Oral Intake NPO since 06:00 03/05/24 10:08 Meds taken in AM with sips of Yes 03/05/24 10:08 water? Meds patient instructed to take am of surgery Any additional information?: Yes Meds taken in AM with sips of water?: Yes PONV PONV - sales development consultant: PONV - sales development consultant Female Yes 02/25/24 10:18 HX of Motion Sickness Yes 02/25/24 10:18 HX of N/V After Surgery No 02/25/24 10:18 Non-Smoker Yes 02/25/24 10:18 Duration of Surgery greater Yes 02/25/24 10:18 than 60 minutes Number of Risk Factors 4 02/25/24 10:18 PONV Score Severe Risk 02/25/24 10:18 Height & Weight Height & Weight: Anesthesia: Height & Weight Height 5 ft 4 in 03/05/24 10:08 Weight: 78.1 kg 03/05/24 10:08 Body Mass Index (BMI) 29.5 03/05/24 10:08 Respiratory Assessment Respiratory Assessment - sales development consultant: Respiratory Tract Infection Hx - sales development consultant Hx Respiratory Tract Infection No 02/25/24 10:18 STOP Sleep Apnea STOP Sleep Apnea - sales development consultant: STOP Sleep Apnea - sales development consultant Hx Hypertension Yes: NO MEDS FOR 10 YRS 02/25/24 10:18 Hx Sleep Apnea No 02/25/24 10:18 CPAP BIPAP Do you snore loudly (louder No 02/25/24 10:18 than talking or can be heard Do you often feel tired/ Yes 02/25/24 10:18 fatigued/ sleepy during daytime? Has anyone observed you stop No 02/25/24 10:18 breathing during sleep? STOP Results Positive 02/25/24 10:18 QUESTION #5 FULL TEXT : Do you snore loudly (louder than talking or can be heard through closed doors)? Tobacco Use History Tobacco Use History - sales development consultant: Tobacco Use History - sales development consultant Tobacco Use Smoking Status Never smoker 02/25/24 10:18 Hx Tobacco Use No 02/25/24 10:18 Years Smoking Packs Smoked per Day Smoking Cessation Date was within the last 15 years Hx Smoking Cessation Date Hx Smoking Cessation Counseling Hematologic Medial History Hematologic Hx - sales development consultant: Hematologic Medical Hx - chronic condition nurse Hx of Blood Transfusion Yes 02/25/24 10:18 Hx of Transfusion in last 3 No 02/25/24 10:18 Months Date of Last Transfusion (if within last 3 months) Ever experience any problems No 02/25/24 10:18 with transfusion(s)? Specify any problems Hx of Preganancy in last 3 No 02/25/24 10:18 Months Nurse Filling Out Transfusion DSCHRIBER 02/25/24 10:18 & Questions: Date: 02/25/24 02/25/24 10:18 Time: 10:20 02/25/24 10:18 Patient unable to answer at this time (ie. confused, unrespo /Reproduction History /Reproductive History - sales development consultant: /Reproductive Hx- sales development consultant Hx Now No 02/25/24 10:18 Gestational Age (in weeks): EDC: Hx Hx Para Hx Section SAB No 02/25/24 10:18 Active Medications Active Medications: Current Medications Generic Name Dose Route Start Last Admin Trade Name Freq PRN Reason Stop Dose Admin Acetaminophen 1,000 mg 03/05/24 11:15 03/05/24 10:15 Acetaminophen 500 Mg Tablet PO 03/05/24 11:16 1,000 mg PREOP ONE Administration Ketorolac Tromethamine 30 mg 03/05/24 11:15 03/05/24 10:24 Ketorolac 30 Mg/Ml Syringe IV 03/05/24 11:16 30 mg PREOP ONE Administration Levonorgestrel 1 each 03/05/24 11:15 Levonorgestrel Iud (Liletta) INTRA-UTER 03/05/24 11:16 X1 [facility] Medical History Wears contact lenses Anemia History of GI bleed Gastric reflux Shortness of breath on exertion Non-smoker History of irregular heartbeat Anxiety and depression Vitamin D deficiency Migraine Hypertension Home Medications ?Medication ?Instructions ?Recorded ?Last Taken ?Type bupropion HCl 150 mg 24 hr tablet, 150 mg PO QAM #30 tabs 06/08/21 Unknown Rx extended release (Wellbutrin XL) bupropion HCl 300 mg 24 hr tablet, 300 mg PO QAM #30 tabs 06/08/21 Unknown Rx extended release famotidine 20 mg tablet (Pepcid) 20 mg PO DAILY PRN PRN GERD 02/25/24 03/05/24 06:00 History sumatriptan 10 mg/actuation nasal 20 mg intranasal Q2H PRN migraine 02/25/24 Unknown History spray headache Allergy/AdvReac Type Severity Reaction Status Date / Time sulfamethoxazole (From Allergy Rash Verified 03/05/24 10:05 Bactrim) trimethoprim (From Bactrim) Allergy Rash Verified 03/05/24 10:05 venlafaxine HCl (From Allergy Other Verified 03/05/24 10:05 Effexor) Family History Father , age 73 possible aortic aneurism Hypertension Aunt Breast cancer Grandmother CVA (cerebral vascular accident) Surgical History History of History of cholecystectomy History of repair of congenital cleft palate Social History current occupational status: employed current occupation: Nurse at [employer] leisure activities: exercise Smoking Status: Never smoker alcohol intake: never substance use type: does not use diet: other frequency: 1-2 times per week Review of Systems (Anesthesia) ROS Narrative System reviewed and no additional complaints, except as documented.
--- NOTE | 2024-03-05 11:15 | EMB_PTH ---
PATIENT: CAROLE KUNZ LOC: [facility] [place] U#:[id number] AGE/SX: 43/F ROOM: RE03/05/[address]: Dr. Zulma Singh MD : 1980 BED: DIS: 03/05/2024 SPEC #: [id number] RECD: 03/05/24 13:25 STATUS: DENISSE LLOYD #: [id number] LUCINA: 03/05/24 11:[address]: Zulma Singh DEPT: SURGICAL PATHOLOGY RECD BY: Kimberly Quevedo ENTERED: 03/05/24 14:34 SP TYPE: ENDOM BX/C OTHR DR: Dr. Fortino Lerner MD Tissues: Endometrium, NOS Procedures: Surgery Specimen Level IV HEADER OPERATION: Hysteroscopy, D&C, polyp resection PRE-OP DIAGNOSIS: Dysmenorrhea, endometrial polyp, adenomyosis, pelvic pain TISSUE SUBMITTED: Endometrial curettings MICROSCOPIC DIAGNOSIS Endometrial curettings: Fragments of late secretory endometrium with breakdown. Fragments of benign ectocervical epithelium. VANDANAAndrew 03/06/2024 MICROSCOPIC DESCRIPTION Slides are reviewed. GROSS DESCRIPTION Received in fixative is one container labeled with the patient's name and designated Endometrial curettings. The specimen consists of multiple irregular fragments of gorman-pink soft tissue mixed with polypoid tissue that in aggregate measure 5.0 x 3.0 x 0.3 cm. The specimen is totally submitted in two cassettes. VANDANAAndrew 03/05/2024 TC:4 CPT:47401
--- NOTE | 2024-03-05 11:31 | DCINST_ITS ---
Discharge Instructions Diet Discharge Diet: No restrictions Activity May resume sexual activity in: 2 weeks Lifting Restrictions: none Dressing / Incision Call your doctor if your incision/area has: Sudden Increased Bleeding and Foul Smelling Discharge Call your doctor if you observe: Fever of 101 or Higher and Using more than 1 pad per hour (for 2 hrs in a row) Follow Up Care Please Follow Up With: Zulma Singh MD When: You do not need a postop check, we will contact you with pathology results. Call [phone] or send a [employer] message to make an appointment or with any concerns. Test Results: Test results from this visit will be discussed in further detail at your follow- up appointment, if applicable. Discharge Plan Admission Primary Reason for Your Visit: Hysteroscopy D&C with IUD insertion Attending Provider: Zulma Singh Primary Care Provider: Fortino Lerner Instructions Print Language: Mauritian Discharge Orders/Prescriptions Prescriptions: No Action bupropion HCl 300 mg tablet extended release 24 hr 300 mg PO QAM Qty: 30 3RF bupropion HCl [Wellbutrin XL] 150 mg tablet extended release 24 hr 150 mg PO QAM Qty: 30 3RF sumatriptan 10 mg/actuation spray,non-aerosol 20 mg intranasal Q2H PRN (Reason: migraine headache) Rx Instructions: administer into one nostril as a single dose; if 2nd dose needed,administer into other nostril after at least 2 hrs, NTE 2 doses (40 mg) per episode famotidine [Pepcid] 20 mg tablet 20 mg PO DAILY PRN PRN (Reason: GERD) Referrals / Follow Up: Fortino Lerner MD [Primary Care Provider] - Disposition Disposition (needs filled in before D/C Order can be placed): Home, Self Care
[2024-03-05] MEDS: Lidocaine 1% /Epi 1:100 (20ml) 20 ML Vial (11:41)
[2024-03-05] MEDS: Levonorgestrel IUD (Liletta) 1 EACH INTRA-UTER (11:50)
--- NOTE | 2024-03-05 11:54 | SUR.PHASEI ---
saved EKG strip from 03/05/24 at 1055 and 1057 is not this patient's.
--- NOTE | 2024-03-05 11:59 | OP.PCM_ITS ---
Problems Associated Problem List Diagnoses (1) Pelvic pain: (2) Adenomyosis: (3) Dysmenorrhea: (4) Endometrial polyp: Operative Report (Standard) Operative Information Surgery/Procedure Performed: Hysteroscopy D&C with Liletta IUD insertion Surgeon: Zulma Singh Date of Procedure: 03/05/24 Procedure Start Time: 11:40 Procedure Stop Time: 11:50 Pre-Operative Diagnosis: adenomyosis, AUB, endometrial polyp, dysmenorrhea Post-Operative Diagnosis: AUB, dysmenorrhea, adenomyosis, IUD insertion Select all DRAINS/GRAFTS/IMPLANTS that apply: Implanted device (Liletta IUD) Implanted device details: Liletta IUD Type of Anesthesia: MAC/Supplemental/Local Special Medications: none Estimated Blood Loss: 10 Fluids Replaced: 0 Specimen collected: Yes Description of specimen(s) removed: endometrial curettgins Description of surgery: The patient was taken to the OR where she was prepped and draped in dorsal lithotomy position. The weighted speculum was placed in the vagina and the anterior lip of the cervix was grasped with a single-tooth tenaculum. A paracervical block was administered with 1% lidocaine with 1-100,000 epinephrine solution. The cervix was dilated serially with Hegar dilators. The Symphion hysteroscope was placed into the uterine cavity and the above findings were noted. Bilateral tubal ostia were identified. No polyps or focal abnormalities were noted. The hysteroscope was removed. A gentle sharp curettage was done of the uterine cavity. The instruments were removed from the vagina. The specimen was handed off and sent to pathology. The Liletta IUD was readied and inserted in the usual sterile fashion. The uterus sounded to 10 cm. The strings were cut to 2 cm. All sponge and needle counts were correct. Vaginal sweep was performed by me. The patient was awakened and taken to the recovery room in stable condition. Calculated hysteroscopic fluid deficit is 150 cc of normal saline Surgical Findings: normal cervix and vagina, lush endometrium Cabinetmaker Helper insulation supervisor: No Complications Complications: No Admit VTE Documentation VTE Present on Admission: No VTE Mechan Device Prophylaxis: SCD's VTE Pharm Prophylaxis ordered?: No Reason prophylaxis not ordered: Procedure Not Indicated
--- NOTE | 2024-03-05 12:00 | PCM.POST.ANE ---
Anesthesia: Postop Eval I Current Vital Signs Temperature: 98.4 F Pulse Rate: 88 Blood Pressure: 150/102 Respiratory Rate: 16 Pulse Ox: 99 Oxygen Delivery Method: Room Air Assessment Airway patent: Yes Spontaneous unlabored respirations: Yes Mental status: Awake and Calm nausea: No Vomiting: No Anesthesia Complication: No Fluid Hydration Crystalloid volume administer (ml): 10 Total IV fluid infused: 10 Progress Note Anesthesia document: Postop Eval 1 completed: Yes
--- NOTE | 2024-03-05 17:03 | POSTOPAN2_ITS ---
Anesthesia Postop Eval I Sum Postop Eval Completion status Anesthesia document: Postop Eval 1 completed: Yes Anesthesia Postop Eval I Summary Anesthesia Postop Eval I Summary: Anesthesia Postop Eval I: Assessment Summary Airway patent Yes 03/05/24 12:01 EFFICIENCY MINER BLASTING.GDOTT Spontaneous unlabored Yes 03/05/24 12:01 EFFICIENCY MINER BLASTING.GDOTT respirations Mental status Awake,Calm 03/05/24 12:01 EFFICIENCY MINER BLASTING.GDOTT nausea No 03/05/24 12:01 EFFICIENCY MINER BLASTING.GDOTT Vomiting No 03/05/24 12:01 EFFICIENCY MINER BLASTING.GDOTT Anesthesia Postop Eval I: Fluid Summary Crystalloid volume administer 10 03/05/24 12:01 EFFICIENCY MINER BLASTING.GDOTT (ml) Colloids volume administered ( ml) Blood Product volume administered (ml) Total IV fluid infused 10 03/05/24 12:01 EFFICIENCY MINER BLASTING.GDOTT Anesthesia Postop Eval I: Summary Notes Anesthesia Complication No 03/05/24 12:01 EFFICIENCY MINER BLASTING.GDOTT Anesthesia Complication Comment: Post-operative progress note Anesthesia: Postop Eval II Evaluation Mental status: Awake and Calm Pain Level: 1 nausea: No Vomiting: No Complications Anesthesia Complication: No
--- NOTE | 2024-03-05 17:03 | PCM.POSTANE2 ---
Anesthesia Postop Eval I Sum Postop Eval Completion status Anesthesia document: Postop Eval 1 completed: Yes Anesthesia Postop Eval I Summary Anesthesia Postop Eval I Summary: Anesthesia Postop Eval I: Assessment Summary Airway patent Yes 03/05/24 12:01 SILVERWARE ASSEMBLER.[email or web address] Spontaneous unlabored Yes 03/05/24 12:01 SILVERWARE ASSEMBLER.GDOTT respirations Mental status Awake,Calm 03/05/24 12:01 SILVERWARE ASSEMBLER.GDOTT nausea No 03/05/24 12:01 SILVERWARE ASSEMBLER.GDOTT Vomiting No 03/05/24 12:01 SILVERWARE ASSEMBLER.GDOTT Anesthesia Postop Eval I: Fluid Summary Crystalloid volume administer 10 03/05/24 12:01 SILVERWARE ASSEMBLER.GDOTT (ml) Colloids volume administered ( ml) Blood Product volume administered (ml) Total IV fluid infused 10 03/05/24 12:01 SILVERWARE ASSEMBLER.GDOTT Anesthesia Postop Eval I: Summary Notes Anesthesia Complication No 03/05/24 12:01 SILVERWARE ASSEMBLER.GDOTT Anesthesia Complication Comment: Post-operative progress note Anesthesia: Postop Eval II Evaluation Mental status: Awake and Calm Pain Level: 1 nausea: No Vomiting: No Complications Anesthesia Complication: No
== END 2024-03-05 13:15 | disposition home or self-care (01) ==
LOC: SDC 09:39 → AC 09:40
PROVIDERS: Anesthesiology; PCP Internal Medicine; Referring Provider Obstetrics & Gynecology; Visit Provider Obstetrics & Gynecology
PROC: 0UB98ZZ Excision of Uterus, Via Natural or Artificial Opening Endoscopic (ICD-10-PCS; CPT 58558; principal; 2024-03-05 11:00)
DX: N93.9 Abnormal uterine and vaginal bleeding, unspecified (principal); N80.03 Adenomyosis of the uterus; F34.1 Dysthymic disorder; N84.0 Polyp of corpus uteri; G43.909 Migraine, unspecified, not intractable, without status migrainosus; Z30.430 Encounter for insertion of intrauterine contraceptive device; N94.6 Dysmenorrhea, unspecified; F41.9 Anxiety disorder, unspecified; F32.9 Major depressive disorder, single episode, unspecified; K21.9 Gastro-esophageal reflux disease without esophagitis; Z90.49 Acquired absence of other specified parts of digestive tract; Z87.730 Personal history of (corrected) cleft lip and palate
CPT/HCPCS: 58558; 58300; 00952; 81025; 88305; A4216; J2405